=== PATIENT | male | born 1995 | race Caucasian/White ===

== ENCOUNTER 2016-10-27 16:01 | Emergency (ER) | payer OTHER ==
[2016-10-27] MEDS ORDERED: HYDROcod/ACETAM 5/325 MG TABLET ONE (16:27)
[2016-10-27] MEDS ORDERED: CYCLOBENZAPRINE 10 MG TABLET PO ONE ×2 (16:27)
== END 2016-10-27 16:22 | disposition home or self-care (01) ==
DX: T63.301A Toxic effect of unspecified spider venom, accidental (unintentional), initial encounter (principal)
CPT/HCPCS: 99282; A9270

== ENCOUNTER 2016-11-29 12:43 | Emergency (ER) | payer OTHER ==
[2016-11-29 12:54] VITALS: BP 118/82
[2016-11-29] MEDS ORDERED: BUFFERED LIDOCAINE 10 ML SYRINGE ONE (12:56)
--- NOTE | 2016-11-29 13:01 | ED Physician Documentation ---
PD HPI UPPER EXT INJURY - Stated complaint Stated Complaint: RT INDEX FINGER INJ - Chief complaint Chief Complaint: Wound - History obtained from History obtained from: Patient - History of Present Illness Location: Right (Hit with a stick to the tip of the right index finger yesterday. He has a deep abrasion there and pain at the tip. He is up-to-date on tetanus. He is right-handed.) Review of Systems Constitutional: denies: Fever, Chills Nose: denies: Rhinorrhea / runny nose, Congestion Cardiac: denies: Chest pain / pressure, Palpitations PD PAST MEDICAL HISTORY - Past Medical History Past Medical History: Yes Psych: Depression, Anxiety - Past Surgical History Past Surgical History: No - Present Medications Home Medications: Ambulatory Orders Medication Instructions Recorded Confirmed Cholecalciferol (Vitamin D3) 1 tab PO DAILY 10/27/16 11/29/16 [Vitamin D3] buPROPion [Wellbutrin Sr] 450 mg PO DAILY 10/27/16 11/29/16 Cephalexin [Keflex] 500 mg PO QID #30 capsule 11/29/16 Escitalopram [Lexapro] 10 mg ORAL DAILY 11/29/16 11/29/16 Ibuprofen [Motrin] 800 mg PO Q8H PRN #30 tablet 11/29/16 - Allergies Allergies/Adverse Reactions: Allergies Allergy/AdvReac Type Severity Reaction Status Date / Time No Known Drug Allergies Allergy Verified 11/29/16 12:49 - Social History Does the pt smoke?: No Smoking Status: Never smoker Does the pt drink ETOH?: No Does the pt have substance abuse?: No - Immunizations Immunizations are current?: Yes - POLST Patient has POLST: No PD ED PE NORMAL - Vitals Vital signs reviewed: Yes - General General: Alert and oriented X 3, No acute distress - Extremities Extremities: Other (Right second finger: Radial to the nail on the tip there is a deep abrasion, nothing that needs suturing. He is quite tender at the tip with a 100% subungual hematoma but no neurovascular compromise.) - Neuro Neuro: Alert and oriented X 3, Normal speech - Psych Psych: Normal mood, Normal affect Results - Vitals Vitals: Vital Signs - 24 hr 11/29/16 12:51 Temperature 36.3 C L Heart Rate 70 Respiratory 18 Rate Blood Pressure 118/82 H O2 Saturation 96 Oxygen O2 Source Room air - Rads (name of study) R 2nd finger Radiology: EMP read contemporaneously (tuft fracture) Procedures - General procedure General procedure: The wound is irrigated, a digital block was done in standard fashion with buffered lidocaine to the right second finger with excellent anesthesia, the nail was trephinated using electrocautery and a dressing was placed. Departure - Departure Disposition: 01 Home, Self Care Clinical Impression: Open fracture of tuft of distal phalanx of finger Qualifiers: Encounter type: initial encounter Qualified Code(s): S62.639B - Displaced fracture of distal phalanx of unspecified finger, initial encounter for open fracture Condition: Good Record reviewed to determine appropriate education?: Yes Instructions: ED Fx Finger Open Prescriptions: Cephalexin [Keflex] 500 mg PO QID #30 capsule Ibuprofen [Motrin] 800 mg PO Q8H PRN #30 tablet PRN Reason: PAIN &/OR FEVER Comments: The wound is irrigated, a digital block was done in standard fashion with buffered lidocaine to the right second finger with excellent anesthesia, the nail was trephinated using electrocautery and a dressing was placed. Discharge Date/Time: 11/29/16 13:37
[2016-11-29] MEDS ORDERED: CEPHALEXIN 250 MG CAPSULE PO STA (13:24)
[2016-11-29] MEDS ORDERED: CEPHALEXIN 250 MG CAPSULE PO ONE (13:27)
--- NOTE | 2016-11-29 13:54 | XRAY Preliminary Report ---
Exam: XR Finger(s) RT IMPRESSION: Comminuted fracture deformity involving the tip of the distal phalanx (second digit). [facility] SITE ID: [id number]
--- NOTE | 2016-11-29 13:57 | XRAY Report ---
EXAM: RIGHT SECOND DIGIT RADIOGRAPHY EXAM DATE: 11/29/2016 01:25 PM. CLINICAL HISTORY: 2nd fingertip inj. COMPARISON: None. TECHNIQUE: 3 views. FINDINGS: Bones: Mildly comminuted fracture deformity noted about the distal phalanx. The other osseous structu res appear intact. Joints: No subluxation. Soft Tissues: Regional soft tissue swelling noted about the tip of the second digit. IMPRESSION: Comminuted fracture deformity involving the tip of the distal phalanx (second digit). [facility] Referring Provider Line: [phone] SITE ID: [id number]
== END 2016-11-29 13:37 | disposition home or self-care (01) ==
LOC: ED 12:43
DX: S62.630B Displaced fracture of distal phalanx of right index finger, initial encounter for open fracture (principal); S60.121A Contusion of right index finger with damage to nail, initial encounter; W22.8XXA Striking against or struck by other objects, initial encounter
CPT/HCPCS: 11740; 73140; 99283; A9270; 29515

== ENCOUNTER 2017-04-07 12:54 | Emergency (ER) | payer OTHER ==
[2017-04-07 13:05] VITALS: BP 135/82
[2017-04-07] MEDS ORDERED: MECLIZINE 12.5 MG TABLET PO STA (17:19)
--- NOTE | 2017-04-07 17:21 | ED Physician Documentation ---
History of Present Illness - Stated complaint Stated Complaint: VERTIGO - Chief complaint Chief Complaint: Neuro - History obtained from History obtained from: Patient - History of Present Illness Timing: Today Pain level max: 0 Pain level now: 0 - Additonal information Additional information: Patient is a 21-year-old male who states that he is having vertigo today. This is intermittent. Worse with movement. Better with rest. Feels the room spinning around him. Has had vertigo in the past and states that this feels similar. No recent trauma. No recent illnesses. Review of Systems Constitutional: denies: Fever, Chills Eyes: denies: Loss of vision, Decreased vision, Photophobia Ears: denies: Ear pain Nose: denies: Rhinorrhea / runny nose, Congestion Throat: denies: Sore throat Cardiac: denies: Chest pain / pressure Respiratory: denies: Cough GI: reports: Nausea. denies: Vomiting Skin: denies: Rash Musculoskeletal: denies: Neck pain, Back pain Neurologic: denies: Focal weakness, Numbness, Headache, Head injury, LOC PD PAST MEDICAL HISTORY - Past Medical History Past Medical History: Yes Psych: Depression, Anxiety - Past Surgical History Past Surgical History: No - Present Medications Home Medications: Ambulatory Orders Medication Instructions Recorded Confirmed Cholecalciferol (Vitamin D3) 1 tab PO 10/27/16 11/29/16 [Vitamin D3] buPROPion [Wellbutrin Sr] 450 mg PO DAILY 10/27/16 04/07/17 FLUoxetine [PROzac] 10 mg PO DAILY 04/07/17 04/07/17 Meclizine HCl [Bonine] 25 mg PO Q6H PRN #20 tab.chew 04/07/17 - Allergies Allergies/Adverse Reactions: Allergies Allergy/AdvReac Type Severity Reaction Status Date / Time No Known Drug Allergies Allergy Verified 04/07/17 13:06 - Social History Does the pt smoke?: No Smoking Status: Never smoker Does the pt drink ETOH?: No Does the pt have substance abuse?: No - Immunizations Immunizations are current?: Yes - POLST Patient has POLST: No PD ED PE NORMAL - Vitals Vital signs reviewed: Yes - General General: Alert and oriented X 3, No acute distress, Well developed/nourished - HEENT HEENT: PERRL, EOMI, Ears normal, Moist mucous membranes, Pharynx benign - Neck Neck: Supple, no meningeal sign - Cardiac Cardiac: RRR - Respiratory Respiratory: Clear bilaterally - Abdomen Abdomen: Normal bowel sounds, Soft, Non tender, Non distended - Derm Derm: Warm and dry - Extremities Extremities: No edema - Neuro Neuro: Alert and oriented X 3, chief i dispatcher 2-12 intact, No motor deficit, No sensory deficit, Normal speech, Other (Positive Hallpike to the left. Horizontal nystagmus present. Normal cerebellar test) - Psych Psych: Normal mood, Normal affect Results - Vitals Vitals: Oxygen O2 Source Room air PD MEDICAL DECISION MAKING - ED course Complexity details: considered differential, d/w patient ED course: Patient is a 21-year-old male with what appears to be recurrent BPPV. Symptoms are mild in the emergency department. Ambulating with eyes wide open and a straight line. Does not need to hold onto anything to walk. Is not stumbling. There is no evidence of acute neurological deficits to suggest stroke, hemorrhage or tumor. Will place on meclizine for home and follow-up with his doctor in the [facility]. Patient counseled regarding signs and symptoms for which I believe and urgent re-evaluation would be necessary. Patient with good understanding of and agreement to plan and is comfortable going home at this time This document was made in part using voice recognition software. While efforts are made to proofread this document, sound alike and grammatical errors may occur. Departure - Departure Disposition: 01 Home, Self Care Clinical Impression: Vertigo Condition: Good Instructions: Vertigo Paroxysmal Positional Follow-Up: Ricky Davenport MD [Primary Care Provider] - Within 1 week Prescriptions: Meclizine HCl [Bonine] 25 mg PO Q6H PRN #20 tab.chew PRN Reason: Vertigo Comments: You can use the meclizine as needed at home for the vertigo. You can also look up the half somersault for vertigo maneuver on [employer]rentingube as this generally helps people's vertigo at home. Follow-up with the [facility] to determine your SIQ status Discharge Date/Time: 04/07/17 17:39
[2017-04-07] MEDS ORDERED: MECLIZINE 12.5 MG TABLET PO ONE (17:36)
== END 2017-04-07 17:39 | disposition home or self-care (01) ==
LOC: ED 12:54
DX: H81.10 Benign paroxysmal vertigo, unspecified ear (principal)
CPT/HCPCS: 99282; 99283

== ENCOUNTER 2019-05-18 07:17 | Day surgery (SDC) | payer OTHER ==
[2019-05-18] MEDS ORDERED: HYDROmorphone 1 MG/ML SYRINGE IVP ONE (07:18)
[2019-05-18] MEDS ORDERED: PROPOFOL 200 MG/20 ML VIAL IVP ONE (07:18)
[2019-05-18] MEDS ORDERED: DEXAMETHASONE 4 MG/ML VIAL IVP ONE (07:18)
[2019-05-18] MEDS ORDERED: MIDAZOLAM 2 MG/2 ML VIAL IVP ONE (07:18)
[2019-05-18] MEDS ORDERED: KETOROLAC 30 MG/ML VIAL IVP ONE (07:18)
[2019-05-18] MEDS ORDERED: CEFAZOLIN SODIUM IN 0.9 % NACL 2 GM/100 ML BAG IV ONE (07:31)
[2019-05-18] MEDS ORDERED: LACTATED RINGERS 1,000 ML IV ONE ×2 (08:03→09:51)
--- NOTE | 2019-05-18 08:03 | ANESTHESIA ---
Pre-Anesthesia VS, & Labs - Diagnosis right knee pain - Procedure right knee arthroscopy Vital Signs: Temp Pulse Resp BP Pulse Ox 36.0 C L 73 16 117/82 H 97 05/18/19 07:31 05/18/19 07:31 05/18/19 07:31 05/18/19 07:31 05/18/19 07:31 Height 5 ft 9 in Weight (kg) 81.65 kg Body Mass Index 28.0 - NPO >8 hours Home Medications and Allergies Home Medications: Ambulatory Orders Biotin 5 mg PO 05/16/19 Multivitamin [One Daily Multivitamin] 1 each PO 05/16/19 buPROPion [Wellbutrin Xl] 150 mg PO DAILY 05/16/19 Biotin 5 mg PO 05/16/19 Multivitamin [One Daily Multivitamin] 1 each PO 05/16/19 buPROPion [Wellbutrin Xl] 150 mg PO DAILY 05/16/19 Allergies/Adverse Reactions: Allergies Allergy/AdvReac Type Severity Reaction Status Date / Time No Known Drug Allergies Allergy Verified 05/16/19 13:16 Anes History & Medical History - Anesthetic History Anesthesia Complications: reports: Emergence delirium - Medical History Cardiovascular: reports: None Pulmonary: reports: None Gastrointestinal: reports: None Urinary: reports: None Musculoskeletal: reports: Other Endocrine/Autoimmune: reports: None Smoking Status: Never smoker - Surgical History Other Past Surgical History: wisdom teeth in office Exam General: Alert Dental: WNL Mouth Opening: Greater than 4 Fingerbreadths Neck Mobility: Normal Mallampati classification: I Thyromental Distance: greater than 6 cm Respiratory: Lungs clear Cardiovascular: Regular rate, Normal S1, Normal S2 Mental/Cognitive Status: Alert/Oriented X3 Plan Anesthesia Type: General Consent for Procedure(s) Verified and Reviewed: Yes Code Status: Attempt Resuscitation ASA classification: 1-Healthy patient Is this case an emergency?: No
[2019-05-18] MEDS ORDERED: BUPIVACAINE 0.25% PF 30 ML VIAL ONE (08:27)
[2019-05-18] MEDS ORDERED: EPINEPHrine 1 MG/ML AMP ONE (08:29)
[2019-05-18] MEDS ORDERED: EPINEPHrine 1 MG/ML AMP IR ONE (09:23)
[2019-05-18] MEDS ORDERED: BUPIVACAINE 0.25% PF 30 ML VIAL SUBQ ONE (09:23)
[2019-05-18] MEDS ORDERED: MORPHINE IR 15 MG TABLET PO PRN (09:51)
[2019-05-18] MEDS ORDERED: ONDANSETRON 4 MG/2 ML VIAL IVP PRN (09:55)
[2019-05-18] MEDS: fentaNYL 100 MCG/2 ML VIAL ONE ×2 (10:12→10:19)
--- NOTE | 2019-05-18 10:14 | OPERATIVE REPORT ---
Operative Report - General Procedure Date: 05/18/19 - Procedure Note Estimated Blood Loss (mL): 1 - Other Other Information/Narrative: Date of Procedure: 18 May 2019 Planned Procedure: Right knee arthroscopy medial plica debridement Pre-op diagnosis: Right knee symptomatic medial plica Procedure performed: Right knee arthroscopy medial plica debridement, medial meniscal debridement, medial meniscal trephination Post-op diagnosis: Right knee symptomatic medial plica, medial femoral condyle chondromalacia, medial meniscal body degeneration Primary Surgeon: NAOMI TY Secondary Surgeon: RYLEE NEWBY Anesthesia: General with an LMA EBL: Less than 1 ml Tourniquet: 43 minutes, right thigh at 250mmHg. Arthroscopic findings right knee: 1. Patella: Normal-appearing without significant cartilage wear 2. Trochlea: Mild trochlear grooving 3. Medial Compartment: Approximately 10 mm x 10 mm chondral degeneration of the medial femoral condyle in the weightbearing dome. Tibial cartilage largely normal. Large medial plica. Degeneration of the medial meniscal body with superficial separation on the superior surface. 4. Lateral Compartment: Normal, mild tibial cartilage softening 5. ACL and PCL: Intact, intact COMPLICATIONS: none IMPLANTS: None Indications for surgery: 23-year-old male with approximately 5-year history of right medial knee pain, he had undergone multiple rounds of physical therapy, treatment with oral nonsteroidal medications without significant durable. MRI suggestive of an intrasubstance tear of the body of the medial meniscus without definitive surfacing. Clinical exam suggestive of a symptomatic medial plica, with some pain at the body of the medial meniscus. The risks, benefits, and alternatives were discussed. Given his lack of definitive findings on MRI, we had an extensive discussion about the possibility that it arthroscopy fails to improve his symptoms. Risks include pain, bleeding, infection, damage to nearby structures and cartilage, lack of symptom relief, need for further surgery, DVT, PE, stroke, and . Written consent was obtained. Procedure Details: The patient was met in the pre-operative hold area. Persistence of symptoms and consent was verified. The patient verified the surgical site as the right knee. The operative knee was initialed per our standard protocol using surgical marker. The patient then met with anesthesia and was brought back to the operating room. The patient was placed supine on the operating table. A general anesthetic was administered and LMA was placed. A well-padded tourniquet was placed on the right thigh. Following tourniquet placement, the right lower extremity was then prepped and draped in the usual sterile fashion. A surgical timeout was performed, verifying the correct patient, the correct procedure and surgical site. We confirmed that perioperative antibiotics had been administered. Everyone agreed to proceed. The Escmarch was used to exsanguinate the right lower extremity and the tourniquet was raised. An 11 blade scalpel was used to make an anterolateral arthroscopic portal, the anteromedial was created using needle localization and direct visualization. The arthroscope was introduced into the knee and a diagnostic arthroscopy was performed with the above-stated findings. A limited debridement of the anterior fat pad was performed to improve visualization. There was a large medial plica as above, the medial compartment had a small area of chondromalacia on the medial femoral condyle in the weightbearing area, and the medial meniscus overall appeared somewhat diminutive. Centrally at the body, there was superficial tearing of the meniscus on the superior surface, with probed tissue consistency feeling somewhat thickened and fibrotic. This was debrided using an arthroscopic biter and the sucker shaver to remove any free flaps. The decision was made to not debride all of the degenerative meniscal tissue as this would have resulted in a functionally complete meniscectomy. In order to facilitate a healing response, an 18-gauge needle was used in an outside in technique through the joint capsule to the body of the medial meniscus. Approximately 7 passes were made with an 18-gauge needle, with the needle visualized passing through the body and inner surface of the meniscus from outside the joint. Following meniscal debridement and trephination, we turned our attention to the large medial plica. This was debrided using the arthroscopic sucker shaver back to the level of the joint capsule. The arthroscopic instruments were then removed from the knee. The portals were closed with 3-0 Monocryl. 0.25% Marcaine plain was injected into the periarticular soft tissues. The incisions were dressed with Xeroform gauze, 4x4 gauze, an ABD and ANTIONETTE stocking. A thigh-high ANTIONETTE stocking was also placed on the right leg . The tourniquet was lowered. The surgical drapes were removed. The patient was awoken from anesthesia, transferred to the hospital bed, and ta henrique to the PACU for recovery in good condition. Postoperative plan: 1. Discharge home from the same day surgery facility once the patient has met discharge criteria. 2. Advance weightbearing as tolerated, range of motion as tolerated, and wean from crutches as tolerated as gait normalizes. 3. Return to clinic in 5-7 days for wound check. Will start formal PT at that time. 4. Allow advancement of activities as tolerated with full clearance for all activities anticipated in 6-8 weeks postoperatively.
[2019-05-18 11:38] VITALS: BP 117/75
== END 2019-05-18 07:18 | disposition home or self-care (01) ==
LOC: SDS 07:17
PROVIDERS: ATTEND Orthopaedic Surgery
PROC: 0SQC4ZZ Repair Right Knee Joint, Percutaneous Endoscopic Approach (ICD-10-PCS; 2019-05-18)
PROC: 0SBC4ZZ Excision of Right Knee Joint, Percutaneous Endoscopic Approach (ICD-10-PCS; principal; 2019-05-18 08:30)
DX: M23.331 Other meniscus derangements, other medial meniscus, right knee (principal); M67.51 Plica syndrome, right knee; M94.261 Chondromalacia, right knee; F43.25 Adjustment disorder with mixed disturbance of emotions and conduct; F17.201 Nicotine dependence, unspecified, in remission; Z79.899 Other long term (current) drug therapy

== ENCOUNTER 2019-05-19 02:35 | Emergency (ER) | payer OTHER ==
--- NOTE | 2019-05-19 03:25 | ED Physician Documentation ---
History of Present Illness - Stated complaint Stated Complaint: ANXIETY/SHAKING/TIGHT MUSCLES - Chief complaint Chief Complaint: General - History obtained from History obtained from: Patient - History of Present Illness Timing: Enter time (23:00), Today Improved by: nothing Worsened by: no exacerbating factors - Additonal information Additional information: Patient underwent arthroscopy of his right knee Earlier today in this hospital. Patient says that he was told of signs and symptoms to be wary of, particularly because he takes buproprion and this can cause serotonin syndrome in combination with the anti-nauseant he was prescribed. he presents to the emergency department at this time due to concerns that he has some of the symptoms described for serotonin syndrome. However, he has not yet taken a dose of the Zofran that was prescribed. Patient complains of tremulousness, left shoulder an d left upper chest tightness, jaw quivering, mild shortness of breath, mild nausea without vomiting. Symptoms started at 11 PM tonight. He has been monitoring his temperature, and reports that he has had no fever. Review of Systems Constitutional: denies: Fever, Myalgias, Fatigue Cardiac: reports: Chest pain / pressure. denies: Palpitations Respiratory: reports: Dyspnea (mild). denies: Cough GI: reports: Nausea. denies: Abdominal Pain, Vomiting Neurologic: denies: Generalized weakness, Focal weakness, Numbness, Confused, Altered mental status, Headache PD PAST MEDICAL HISTORY - Past Medical History Cardiovascular: None Respiratory: None Endocrine/Autoimmune: None GI: None : None Psych: Other Musculoskeletal: Other - Past Surgical History Past Surgical History: No - Present Medications Home Medications: Ambulatory Orders Medication Instructions Recorded Confirmed Biotin 5 mg PO 05/16/19 Multivitamin [One Daily 1 each PO 05/16/19 Multivitamin] buPROPion [Wellbutrin Xl] 150 mg PO DAILY 05/16/19 05/18/19 LORazepam [Lorazepam] 0.5 mg PO Q6HR PRN #14 tablet 05/19/19 - Allergies Allergies/Adverse Reactions: Allergies Allergy/AdvReac Type Severity Reaction Status Date / Time No Known Drug Allergies Allergy Verified 05/19/19 02:48 - Social History Does the pt smoke?: No Smoking Status: Never smoker Does the pt drink ETOH?: No Does the pt have substance abuse?: No - Immunizations Immunizations are current?: Yes - POLST Patient has POLST: No PD ED PE NORMAL - Vitals Vital signs reviewed: Yes - General General: Alert and oriented X 3, No acute distress, Well developed/nourished - HEENT HEENT: PERRL, Moist mucous membranes - Neck Neck: Supple, no meningeal sign - Cardiac Cardiac: RRR, No murmur, No gallop, No rub - Respiratory Respiratory: No respiratory distress, Clear bilaterally - Abdomen Abdomen: Soft, Non tender - Derm Derm: Normal color, Warm and dry - Neuro Neuro: Alert and oriented X 3, cell plasterer 2-12 intact, No motor deficit, No sensory deficit, Normal speech, Other (2+/4 bilateral bicep dtr and left patella (right not tested due to recent arthroscopy). no clonus bilateral lower extremities) Results - Vitals Vitals: Oxygen O2 Source Room air PD MEDICAL DECISION MAKING - ED course Complexity details: reviewed old records, re-evaluated patient, considered differential, d/w patient ED course: doubt serotonin syndrome; while he does c/o mild tremulousness, and there is a subtle, intermittent quivering of his jaw, he does not c/o nor exhibit other features that would be s/o serotonin syndrome. his vital signs are stable. emergent testing not indicated at this time. given po lorazepam and reported improvement (this would be indicated for serotonin syndrome, and could also help with possible anxiety component) Departure - Departure Disposition: 01 Home, Self Care Clinical Impression: Tremulousness Condition: Good Instructions: ED Symptoms No Dx Follow-Up: Jennifer Rodriguez MD [Primary Care Provider] - Prescriptions: LORazepam [Lorazepam] 0.5 mg PO Q6HR PRN #14 tablet PRN Reason: Anxiety Discharge Date/Time: 05/19/19 05:18
[2019-05-19] MEDS ORDERED: LORazepam 1 MG TABLET PO STA (03:55)
[2019-05-19 04:41] VITALS: BP 120/64
== END 2019-05-19 05:18 | disposition home or self-care (01) ==
LOC: ED 02:35
DX: R25.1 Tremor, unspecified (principal)
CPT/HCPCS: 99282; 99283; J8499

== ENCOUNTER 2020-01-16 13:50 | Outpatient (CLI) | payer OTHER ==
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
== END 2020-01-16 13:51 | disposition home or self-care (01) ==
LOC: SC 13:50
PROVIDERS: ATTEND Internal Medicine Pulmonary Disease
DX: R06.83 Snoring (principal); R06.81 Apnea, not elsewhere classified; G47.8 Other sleep disorders; G47.10 Hypersomnia, unspecified; R53.83 Other fatigue; E66.3 Overweight; Z68.26 Body mass index [BMI] 26.0-26.9, adult
CPT/HCPCS: 99203; 99212

== ENCOUNTER 2021-05-21 13:58 | Emergency (ER) | payer OTHER ==
[2021-05-21 14:17] VITALS: BP 139/89
--- NOTE | 2021-05-21 14:48 | ED Physician Documentation ---
PD HPI MHE - Stated complaint Stated Complaint: SI - Chief complaint Chief Complaint: MHE - History obtained from History obtained from: Patient - History of Present Illness Primary symptom: Suicidal ideation Timing - onset: Today Pain level max: 0 Pain level now: 0 - Additional information Additional information: Patient is a 25-year-old male who presents to the emergency department with suicidal ideation. He states his depression has been worsening. He does not currently feel suicidal or have a plan. He states that his is now stationed in [place]. He has been feeling increasingly lonely at home. Used to be on Wellbutrin but is no longer taking it. Does not currently have a counselor or therapist. Review of Systems Ten Systems: 10 systems reviewed and negative Constitutional: denies: Fever, Chills Respiratory: denies: Cough GI: denies: Abdominal Pain, Vomiting Skin: denies: Rash Musculoskeletal: denies: Neck pain, Back pain Neurologic: denies: Headache PD PAST MEDICAL HISTORY - Past Medical History Cardiovascular: None Respiratory: None Endocrine/Autoimmune: None GI: None : None Psych: Other Musculoskeletal: Other - Past Surgical History Past Surgical History: No - Present Medications Home Medications: Ambulatory Orders Medication Instructions Recorded Confirmed Biotin 5 mg PO 05/16/19 Multivitamin [One Daily 1 each PO 05/16/19 Multivitamin] buPROPion [Wellbutrin Xl] 150 mg PO DAILY 05/16/19 05/18/19 LORazepam [Lorazepam] 0.5 mg PO Q6HR PRN #14 tablet 05/19/19 - Allergies Allergies/Adverse Reactions: Allergies Allergy/AdvReac Type Severity Reaction Status Date / Time No Known Drug Allergies Allergy Verified 05/21/21 14:17 - Social History Does the pt smoke?: No Smoking Status: Never smoker Does the pt drink ETOH?: No Does the pt have substance abuse?: No - Immunizations Immunizations are current?: Yes - POLST Patient has POLST: No PD ED PE NORMAL - Vitals Vital signs reviewed: Yes - General General: Alert and oriented X 3, No acute distress, Well developed/nourished - HEENT HEENT: PERRL, Moist mucous membranes - Neck Neck: Supple, no meningeal sign - Cardiac Cardiac: RRR, Strong equal pulses - Respiratory Respiratory: No respiratory distress, Clear bilaterally - Abdomen Abdomen: Soft, Non tender, Non distended - Derm Derm: Warm and dry - Extremities Extremities: No edema - Neuro Neuro: Alert and oriented X 3 - Psych Psych: Normal mood, Normal affect, Other (Maintains eye contact) Results - Vitals Vitals: Vital Signs - 24 hr 05/21/21 14:05 Temperature 36.8 C Heart Rate 85 Respiratory 16 Rate Blood Pressure 139/89 H O2 Saturation 100 Oxygen O2 Source Room air - Labs Labs: Laboratory Tests 05/21/21 05/21/21 05/21/21 14:58 14:58 14:58 WBC 7.1 RBC 5.27 Hgb 15.6 Hct 47.0 MCV 89.2 MCH 29.6 MCHC 33.2 RDW 12.4 Plt Count 266 MPV 9.8 Neut # (Auto) 5.3 Lymph # (Auto) 1.3 L [place] # (Auto) 0.4 Eos # (Auto) 0.0 Baso # (Auto) 0.0 Absolute Nucleated RBC 0.00 Nucleated RBC % 0.0 Sodium 137 Potassium 4.3 Chloride 103 Carbon Dioxide 26 Anion Gap 8.0 BUN 13 Creatinine 0.6 Estimated GFR (MDRD) 162 Glucose 100 Calcium 9.8 Total Bilirubin 0.8 AST 27 ALT 69 H Alkaline Phosphatase 89 Total Protein 7.8 Albumin 4.9 Globulin 2.9 Albumin/Globulin Ratio 1.7 Lipase 24 TSH 0.59 Urine Color Urine Clarity Urine pH Ur Specific [place] Urine Protein Urine Glucose (UA) Urine Ketones Urine Occult Blood Urine Nitrite Urine Bilirubin Urine Urobilinogen Ur Leukocyte Esterase Ur Microscopic Review Urine Culture Comments Nasal Adenovirus (PCR) Nasal B. parapertussis DNA (PCR) Nasal Coronavir 229E PCR Nasal Coronavir HKU1 PCR Nasal Coronavir NL63 PCR Nasal Coronavir OC43 PCR Nasal Enterovir/Rhinovir PCR Nasal Influenza B PCR Nasal Influenza A PCR Nasal Parainfluen 1 PCR Nasal Parainfluen 2 PCR Nasal Parainfluen 3 PCR Nasal Parainfluen 4 PCR Nasal RSV (PCR) Nasal B.pertussis DNA PCR Nasal C.pneumoniae (PCR) [place] Human Metapneumo PCR Nasal M.pneumoniae (PCR) Nasal SARS-CoV-2 (PCR) Salicylates < 6.0 Urine Opiates Screen Ur Oxycodone Screen Urine Methadone Screen Ur Propoxyphene Screen Acetaminophen < 10 L Ur Barbiturates Screen Ur Tricyclics Screen Ur Phencyclidine Scrn Ur Amphetamine Screen U Methamphetamines Scrn U Benzodiazepines Scrn Urine Cocaine Screen U Cannabinoids Screen Ethyl Alcohol < 5.0 05/21/21 05/21/21 15:21 15:25 WBC RBC Hgb Hct MCV MCH MCHC RDW Plt Count MPV Neut # (Auto) Lymph # (Auto) [place] # (Auto) Eos # (Auto) Baso # (Auto) Absolute Nucleated RBC Nucleated RBC % Sodium Potassium Chloride Carbon Dioxide Anion Gap BUN Creatinine Estimated GFR (MDRD) Glucose Calcium Total Bilirubin AST ALT Alkaline Phosphatase Total Protein Albumin Globulin Albumin/Globulin Ratio Lipase TSH Urine Color YELLOW Urine Clarity CLEAR Urine pH 5.0 Ur Specific [place] 1.010 Urine Protein NEGATIVE Urine Glucose (UA) NEGATIVE Urine Ketones NEGATIVE Urine Occult Blood NEGATIVE Urine Nitrite NEGATIVE Urine Bilirubin NEGATIVE Urine Urobilinogen 0.2 (NORMAL) Ur Leukocyte Esterase NEGATIVE Ur Microscopic Review NOT INDICATED Urine Culture Comments NOT INDICATED Nasal Adenovirus (PCR) NOT DETECTED Nasal B. parapertussis DNA (PCR) NOT DETECTED Nasal Coronavir 229E PCR NOT DETECTED Nasal Coronavir HKU1 PCR NOT DETECTED Nasal Coronavir NL63 PCR NOT DETECTED Nasal Coronavir OC43 PCR NOT DETECTED Nasal Enterovir/Rhinovir PCR NOT DETECTED Nasal Influenza B PCR NOT DETECTED Nasal Influenza A PCR NOT DETECTED Nasal Parainfluen 1 PCR NOT DETECTED Nasal Parainfluen 2 PCR NOT DETECTED Nasal Parainfluen 3 PCR NOT DETECTED Nasal Parainfluen 4 PCR NOT DETECTED Nasal RSV (PCR) NOT DETECTED Nasal B.pertussis DNA PCR NOT DETECTED Nasal C.pneumoniae (PCR) NOT DETECTED [place] Human Metapneumo PCR NOT DETECTED Nasal M.pneumoniae (PCR) NOT DETECTED Nasal SARS-CoV-2 (PCR) NOT DETECTED Salicylates Urine Opiates Screen NEGATIVE Ur Oxycodone Screen NEGATIVE Urine Methadone Screen NEGATIVE Ur Propoxyphene Screen NEGATIVE Acetaminophen Ur Barbiturates Screen NEGATIVE Ur Tricyclics Screen NEGATIVE Ur Phencyclidine Scrn NEGATIVE Ur Amphetamine Screen NEGATIVE U Methamphetamines Scrn NEGATIVE U Benzodiazepines Scrn NEGATIVE Urine Cocaine Screen NEGATIVE U Cannabinoids Screen POSITIVE H Ethyl Alcohol PD MEDICAL DECISION MAKING - ED course Complexity details: reviewed results, re-evaluated patient, considered differential, d/w patient, d/w building performance consultant ED course: 25-year-old male with depression and vague suicidal ideation and passing thoughts. Not currently suicidal. Social work was consulted. Patient is able to contract for safety. He has 3 dogs at home and is forward looking. We will set him up with outpatient counseling. Crisis line information given. Patient will return if he worsens. Patient counseled regarding signs and symptoms for which I believe and urgent re-evaluation would be necessary. Patient with good u nderstanding of and agreement to plan and is comfortable going home at this time This document was made in part using voice recognition software. While efforts are made to proofread this document, sound alike and grammatical errors may occur. Departure - Departure Disposition: 01 Home, Self Care Clinical Impression: Depression Qualifiers: Depression Type: unspecified Qualified Code(s): F32.A - Depression, unspecified Condition: Good Instructions: ED Depression Follow-Up: your,doctor in 1 week [Other] Comments: Please follow-up with the resources given to you today by Geena the social studies department chair. You can also use [facility] [place] Please return if you worsen. Crisis Line and is available to talk to someone [email or web address] is also available to chat with someone online if you prefer. There are also many resources on this website and apps for your phone to help with your mental health You can also text the word START to [phone] to chat with someome via text. Discharge Date/Time: 05/21/21 16:43
[2021-05-21 15:10] LABS: BASOPHILS % (AUTO) 0.6 %; EOSINOPHILS % (AUTO) 0.6 %; HGB - HEMOGLOBIN 15.6 g/dL (14.0-18.0); LYMPHOCYTES # (AUTO) 1.3 10^3/uL (1.5-3.5); LYMPHOCYTES % (AUTO) 18.8 %; MEAN CORPUSCULAR HEMOGLOBIN 29.6 pg (27.0-31.0); MEAN CORPUSCULAR HGB CONC 33.2 g/dL (32.0-36.0); MEAN CORPUSCULAR VOLUME 89.2 fL (80.0-94.0); MEAN PLATELET VOLUME 9.8 fL (7.4-11.4); MONOCYTES # (AUTO) 0.4 10^3/uL (0.0-1.0); NEUTROPHILS # (AUTO) 5.3 10^3/uL (1.5-6.6); NEUTROPHILS % (AUTO) 74.3 %; PLT - PLATELET COUNT 266 10^3/uL (130-450); RED BLOOD COUNT 5.27 10^6/uL (4.70-6.10); RED CELL DISTRIBUTION WIDTH 12.4 % (12.0-15.0); WHITE BLOOD COUNT 7.1 x10^3/uL (4.8-10.8)
[2021-05-21 15:19] LABS: ACETAMINOPHEN < 10 ug/mL (10-30); ALBUMIN 4.9 g/dL (3.2-5.5); ALBUMIN/GLOBULIN RATIO 1.7 (1.0-2.2); ALKALINE PHOSPHATASE 89 IU/L (42-121); ALT ALANINE AMINOTRANSFERASE 69 IU/L (10-60); AST ASPARTATE AMINOTRANSFERASE 27 IU/L (10-42); BILIRUBIN,TOTAL 0.8 mg/dL (0.2-1.0); BUN - BLOOD UREA NITROGEN 13 mg/dL (6-20); CALCIUM 9.8 mg/dL (8.5-10.3); CARBON DIOXIDE - CO2 26 mmol/L (21-32); CHLORIDE 103 mmol/L (101-111); CREATININE 0.6 mg/dL (0.6-1.2); ETOH - ETHANOL < 5.0 mg/dL; GFR - MDRD 162 (>89); GLUCOSE 100 mg/dL (70-100); LIPASE 24 U/L (22-51); POTASSIUM 4.3 mmol/L (3.5-5.0); SALICYLATE < 6.0 mg/dL; SODIUM 137 mmol/L (135-145); TOTAL PROTEIN 7.8 g/dL (6.7-8.2)
[2021-05-21 15:27] LABS: MUDS CUTOFF CONCENTRATIONS CUTOFF CONC BELOW:
[2021-05-21 15:40] LABS: BILIRUBIN,URINE NEGATIVE (NEGATIVE); GLUCOSE, URINE (UA) NEGATIVE (NEGATIVE); KETONES,URINE (UA) NEGATIVE (NEGATIVE); LEUKOCYTE ESTERASE, URINE NEGATIVE (NEGATIVE); NITRITE,URINE NEGATIVE (NEGATIVE); OCCULT BLOOD,URINE NEGATIVE (NEGATIVE); PROTEIN,URINE NEGATIVE (NEGATIVE); UROBILINOGEN,URINE 0.2 (NORMAL) E.U./dL (NORMAL)
[2021-05-21 15:41] LABS: CLARITY,URINE CLEAR (CLEAR)
[2021-05-21 15:52] LABS: AMPHETAMINE SCREEN,URINE NEGATIVE (NEGATIVE); BARBITURATE SCREEN,UR NEGATIVE (NEGATIVE); BENZODIAZEPINES SCREEN, URINE NEGATIVE (NEGATIVE); COCAINE SCREEN URINE NEGATIVE (NEGATIVE); METHADONE SCREEN, URINE NEGATIVE (NEGATIVE); METHAMPHETAMINES SCREEN, URINE NEGATIVE (NEGATIVE); OPIATE SCREEN, URINE NEGATIVE (NEGATIVE); OXYCODONE SCREEN, URINE NEGATIVE (NEGATIVE); PROPOXYPHENE SCREEN, URINE NEGATIVE (NEGATIVE); THC CANNABINOID SCREEN, URINE POSITIVE (NEGATIVE); TRICYCLIC ANTIDEPRESSANT,URINE NEGATIVE (NEGATIVE)
[2021-05-21 16:24] LABS: B. PARAPERTUSSIS- RESP PCR PAN NOT DETECTED; B. PERTUSSIS- RESP PCR PANEL NOT DETECTED; C. PNEUMONIAE- RESP PCR PANEL NOT DETECTED; CORONAVIRUS 229E-RESP PCR NOT DETECTED; CORONAVIRUS HKU1-RESP PCR NOT DETECTED; CORONAVIRUS NL63-RESP PCR NOT DETECTED; CORONAVIRUS OC43-RESP PCR NOT DETECTED; HUMAN METAPNEUMOVIRUS NOT DETECTED; INFLUENZA A- RESP PCR PANEL NOT DETECTED; INFLUENZA B - RESP PCR PANEL NOT DETECTED; M. PNEUMONIAE- RESP PCR PANEL NOT DETECTED; PARAINFLUENZA VIRUS 1 NOT DETECTED; PARAINFLUENZA VIRUS 2 NOT DETECTED; PARAINFLUENZA VIRUS 3 NOT DETECTED; PARAINFLUENZA VIRUS 4 NOT DETECTED; RHINOVIRUS/ENTEROVIRUS NOT DETECTED; RSV- RESP PCR PANEL NOT DETECTED; SARS-CoV-2 -RESP PCR PANEL NOT DETECTED
== END 2021-05-21 16:43 | disposition home or self-care (01) ==
LOC: ED 13:58
DX: F32.A Depression, unspecified (principal); R45.851 Suicidal ideations; Z20.822 Contact with and (suspected) exposure to COVID-19
CPT/HCPCS: 0202U; 36415; 80053; 80306; 80307; 80320; 80329; 81003; 83690; 84443; 85025; 99283; 81001; 87086

== ENCOUNTER 2021-10-10 18:43 | Emergency (ER) | payer OTHER ==
--- OUTSIDE RECORDS SUMMARY | 2021-10-10 19:07 | EXTERNAL MEDICAL SUMMARY RPT | Continuity of Care Document ---
:1995 Author Organization [facility] Address [address] [place] [address] Phone Care Team Providers Name Role Phone Miscellaneous, Doctor Unavailable Unavailable Crew, Candida Barragan Unavailable Unavailable Allergies No information. Encounters No information. Medications date description facility [id number] Amphetamine aspartate 5 MG / Amphetamine Sulfate 5 MG / [facility] Dextroamphetamine saccharate 5 MG / Dext roamphetamine Sulfate 5 MG Oral Tablet Problems date description facility [id number] Contact with and (suspected) exposure t o COVID-19 [facility] Procedures date description facility [id number] General Physician [facility] [id number] Finding [facility] [id number] Diagnosis [facility] Results No information. Vital Signs date measurement value source 20210727 weight_standard 168.98 lb 20210727 weight_metric 76.65 kg 20210727 temperature_standard 99.6 F [id number] temperature_metric 37.56 C 20210727 respiration_rate 18 /min [id number] height_standard 69 in [id number] height_metric 175.26 cm 20210727 heart_rate 76 /min [id number] BP_systolic 122 mm[Hg] 20210727 BP_diastolic 78 mm[Hg] 20210727 BMI 24.9 kg/m2
--- NOTE | 2021-10-10 19:35 | ED Physician Documentation ---
PD HPI UPPER EXT INJURY - Stated complaint Stated Complaint: LT THUMB LAC - Chief complaint Chief Complaint: Laceration - History obtained from History obtained from: Patient - Additonal information Additional information: 26-year-old gentleman who is about 10 years out from his last tetanus shot. He is right-hand dominant. 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 No other injuries. Review of Systems Constitutional: reports: Reviewed and negative Eyes: reports: Reviewed and negative Nose: reports: Reviewed and negative Cardiac: reports: Reviewed and negative PD PAST MEDICAL HISTORY - Past Medical History Past Medical History: Yes Cardiovascular: None Respiratory: None Endocrine/Autoimmune: None GI: None : None Psych: Other Musculoskeletal: Other - Past Surgical History Past Surgical History: No - Present Medications Home Medications: Ambulatory Orders Medication Instructions Recorded Confirmed Biotin 5 mg PO 05/16/19 Multivitamin [One Daily 1 each PO 05/16/19 Multivitamin] buPROPion [Wellbutrin Xl] 150 mg PO DAILY 05/16/19 05/18/19 LORazepam [Lorazepam] 0.5 mg PO Q6HR PRN #14 tablet 05/19/19 - Allergies Allergies/Adverse Reactions: Allergies Allergy/AdvReac Type Severity Reaction Status Date / Time No Known Drug Allergies Allergy Verified 10/10/21 18:55 - Social History Does the pt smoke?: No Smoking Status: Never smoker Does the pt drink ETOH?: No Does the pt have substance abuse?: No - Immunizations Immunizations are current?: Yes - POLST Patient has POLST: No PD ED PE NORMAL - Vitals Vital signs reviewed: Yes - General General: Alert and oriented X 3, No acute distress - Extremities Extremities: Other (He has a flap laceration of the tip of the left thumb that does involve the nail. It is hemostatic.) - Neuro Neuro: Alert and oriented X 3, Normal speech Results - Vitals Vitals: Vital Signs - 24 hr 10/10/21 18:52 Temperature 36.7 C Heart Rate 95 Respiratory 16 Rate Blood Pressure 140/88 H O2 Saturation 100 Oxygen O2 Source Room air Procedures - Splint (location) L thumb Splint applied by: Tech Type of splint: Metal foam finger splint Other: Patient tolerated well, No complications, Neurovascular intact PD MEDICAL DECISION MAKING - ED course ED course: Discussed with him that given that this is already over 24 hours old probably would not merit suturing. It was irrigated by the tech and dressed and he is placed in a metal foam finger splint for comfort and to protect the tip. He was counseled on wound care. Departure - Departure Disposition: 01 Home, Self Care Clinical Impression: Laceration Condition: Good Record reviewed to determine appropriate education?: Yes Instructions: ED Laceration Old Not Sutr Comments: You can take the splint off and wash it with soap and water. Then just keep it covered with a bandage and replace the splint. You probably need to keep doing this for a couple of weeks until it is completely healed. It will be sensitive for some time, but I do not expect any permanent issues. Forms: Activity restrictions
[2021-10-10] MEDS: TETANUS/DIPHTHERIA/PERTUSSIS 0.5 ML SYRINGE IM ONE (19:45)
[2021-10-10 20:10] VITALS: BP 129/88
== END 2021-10-10 20:09 | disposition home or self-care (01) ==
LOC: ED 18:43
DX: S61.012A Laceration without foreign body of left thumb without damage to nail, initial encounter (principal); W26.0XXA Contact with knife, initial encounter; Y93.G1 Activity, food preparation and clean up; Y92.511 Restaurant or cafe as the place of occurrence of the external cause; Y99.0 Civilian activity done for income or pay; Z23 Encounter for immunization; Z71.85 Encounter for immunization safety counseling
CPT/HCPCS: 1040M; 90471; 90715; 99282; 99283